=== PATIENT | male | born 1965 | race Caucasian/White ===

== ENCOUNTER 2022-09-16 20:20 | Inpatient (IN) | payer SELFPAY ==
[~2022-09-16 20:20] MED LIST: Iopamidol 300 61% 100 ML VIAL FS ONE
[2022-09-16 21:24] LABS: Actual Bicarbonate (HCO3a) 21.8 mEq/L (22-28); Base Excess (BEa) -0.9 mEq/L (-2.0 to +3.0); CO2 Tension 31.5 mmHg (35.0-45.0); Calcium, Ionized (arterial) 1.15 mmol/L (1.12-1.30); Carboxyhemoglobin (COHb) 0.6 gm% (0.0-3.0); Critical Notified By: CP.JL; Hemoglobin (Hb) 16.1 g/dL (14.0-18.0); O2 Tension (PaO2), arterial 67.8 mmHg (80.0-100.0); Puncture Site LRA; RapidComm Collect By CP.JL; pH, Arterial 7.46 (7.35-7.45)
[2022-09-16 21:27] LABS: ALV-art Gradient 92.465 mmHg (0-20)
[2022-09-16 21:30] LABS: #Basophils 0.1 10x3/uL (0.0-0.2); #Eosinphils 0.1 10x3/uL (0.0-0.5); #Neutrophils 4.1 10x3/uL (1.5-8.4); %Basophils 0.8 % (0.0-2.0); %Lymphocytes 20.3 % (18.0-47.0); %Monocytes 14.4 % (0.0-10.0); %Neutrophils 61.9 % (40.0-75.0); Hemoglobin 15.5 g/dL (13.5-17.5); Mean Corpuscular HGB CONC 34.1 g/dL (32.0-36.0); Mean Corpuscular Hemoglobin 30.6 pg (27.0-33.0); Mean Corpuscular Volume 89.7 fl (81.2-95.1); Mean Platelet Volume 9.3 fl (7.4-10.4); Platelet Count 272 10x3/uL (150-450); RBC Distribution Width 13.8 % (11.5-14.5); Red Blood Cell (RBC) Count 5.06 10x6/uL (4.32-5.72); White Blood Cell (WBC) Count 6.6 10x3/uL (3.5-10.5)
[2022-09-16] MEDS ORDERED: Furosemide 40 MG/4 ML VIAL ONE (21:34)
[2022-09-16 21:39] LABS: Prothrombin Time 10.4 sec (9.5-12.1)
[2022-09-16 21:44] LABS: ALT (SGPT) 32 U/L (8-55); AST (SGOT) 35 U/L (5-34); Albumin 4.1 g/dL (3.5-5.0); Alkaline Phosphatase 69 U/L (40-110); Anion Gap 14 mmol/L (10-20); BUN (Urea Nitrogen) 25 mg/dL (8.4-25.7); Bilirubin, Total 0.5 mg/dL (0.2-1.2); Calc. Creatinine Clearance 0 mL/min (70-130); Carbon Dioxide 23 mmol/L (22-29); Chloride 107 mmol/L (98-107); Estimated GFR 53; Globulin 2.7 g/dL (2.4-3.5); Glucose 91 mg/dL (70-105); Lipase 29 U/L (8-78); Potassium 4.1 mmol/L (3.5-5.1); Protein, Total 6.8 g/dL (6.0-8.3); Sodium 140 mmol/L (136-145)
[2022-09-16 22:05] LABS: CKMB 7.8 ng/mL (0-6.6)
[2022-09-16] MEDS ORDERED: Calcium Carbonate 500 MG ChewTAB PO PRN (23:55)
[2022-09-16] MEDS ORDERED: Senokot S 8.6-50 MG TAB PO PRN (23:55)
[2022-09-16] MEDS ORDERED: Guaifenesin DM 100-10/5 ML UDCUP PO PRN (23:55)
[2022-09-16] MEDS ORDERED: Acetaminophen 325 MG TAB PO PRN (23:55)
[2022-09-16] MEDS ORDERED: Ondansetron PF 4 MG/2 ML Vial IVP PRN (23:55)
[2022-09-17] MEDS ORDERED: hydrALAZINE 20 MG/ML VIAL SLOW IVP PRN (00:02)
[2022-09-17] MEDS ORDERED: Carvedilol 3.125 MG TAB PO SCH (00:45)
[2022-09-17] MEDS ORDERED: Cefdinir 300 MG CAP PO SCH (00:45)
[2022-09-17] MEDS ORDERED: Dexamethasone 20 MG/5 ML VIAL SLOW IVP SCH (00:45)
[2022-09-17] MEDS ORDERED: Nitroglycerin 2% Ointment 1 INCH/1 GM Packet TOP SCH (00:45)
[2022-09-17 01:06] VITALS: BMI 27.3
[2022-09-17] MEDS: Lorazepam 2 MG/ML VIAL SLOW IVP PRN ×2 (01:19→16:00)
[2022-09-17 02:22] LABS: SARS-CoV-2 NAA Rapid Test Not Detected (NotDetected)
[2022-09-17 05:02] LABS: ALT (SGPT) 33 U/L (8-55); AST (SGOT) 32 U/L (5-34); Albumin 4.3 g/dL (3.5-5.0); Alkaline Phosphatase 71 U/L (40-110); Anion Gap 12 mmol/L (10-20); BUN (Urea Nitrogen) 24 mg/dL (8.4-25.7); Bilirubin, Total 0.6 mg/dL (0.2-1.2); Calc. Creatinine Clearance 73 mL/min (70-130); Calcium 9.1 mg/dL (7.8-10.44); Carbon Dioxide 21 mmol/L (22-29); Chloride 106 mmol/L (98-107); Estimated GFR 66; Globulin 3.3 g/dL (2.4-3.5); Glucose 123 mg/dL (70-105); Potassium 3.9 mmol/L (3.5-5.1); Protein, Total 7.6 g/dL (6.0-8.3); Sodium 135 mmol/L (136-145)
[2022-09-17 05:03] LABS: #Monocytes 0.3 10x3/uL (0.0-1.1); #Neutrophils 4.3 10x3/uL (1.5-8.4); %Basophils 0.6 % (0.0-2.0); %Eosinophils 0.4 % (0.0-6.0); %Lymphocytes 13.8 % (18.0-47.0); %Neutrophils 79.5 % (40.0-75.0); Hemoglobin 16.2 g/dL (13.5-17.5); Mean Corpuscular HGB CONC 33.8 g/dL (32.0-36.0); Mean Corpuscular Hemoglobin 30.3 pg (27.0-33.0); Mean Corpuscular Volume 89.7 fl (81.2-95.1); Mean Platelet Volume 9.4 fl (7.4-10.4); Platelet Count 273 10x3/uL (150-450); RBC Distribution Width 14.2 % (11.5-14.5); Red Blood Cell (RBC) Count 5.35 10x6/uL (4.32-5.72); White Blood Cell (WBC) Count 5.4 10x3/uL (3.5-10.5)
[2022-09-17 05:24] LABS: CKMB 7.2 ng/mL (0-6.6)
[2022-09-17] MEDS: Furosemide 40 MG/4 ML VIAL SLOW IVP SCH ×2 (05:30→14:11)
[2022-09-17 06:38] LABS: Magnesium 2.6 mg/dL (1.6-2.6)
[2022-09-17] MEDS: Budesonide 0.5 MG/2 ML NEB NEB SCH ×2 (07:40→18:37)
[2022-09-17] MEDS ORDERED: Carvedilol 12.5 MG TAB PO SCH (08:00)
[2022-09-17] MEDS ORDERED: Losartan 25 MG TAB PO SCH (09:00)
[2022-09-17] MEDS ORDERED: Iopamidol 300 61% 100 ML VIAL FS ONE (09:08)
[2022-09-17 09:32] LABS: CKMB 7.5 ng/mL (0-6.6)
[2022-09-17] MEDS: Enoxaparin Sodium 40 MG/0.4 ML SYRINGE SC SCH (10:28)
[2022-09-17] MEDS: Folic Acid 1 MG TAB PO SCH (10:29)
[2022-09-17] MEDS: Aspirin 81 mg Enteric Coated Tablet PO SCH (10:29)
[2022-09-17] MEDS: Multivitamin W/ Minerals 1 TAB PO SCH (10:29)
[2022-09-17] MEDS: Thiamine 100 MG TAB PO SCH (10:29)
[2022-09-17] MEDS ORDERED: Carvedilol 6.25 MG TAB PO SCH (10:30)
[2022-09-17] MEDS ORDERED: Losartan Potassium 50 MG TAB PO SCH (10:30)
[2022-09-17] MEDS: Cefdinir 300 MG CAP PO SCH ×2 (10:36→20:49)
[2022-09-17 10:37] LABS: Cardiac Risk 3.4 (Less than 4.5)
[2022-09-17 14:19] LABS: Hemoglobin A1c 5.5 % (4.0-6.0)
[2022-09-17] MEDS: Carvedilol 6.25 MG TAB PO SCH (16:03)
[2022-09-18] MEDS: Furosemide 40 MG/4 ML VIAL SLOW IVP SCH ×2 (06:22→13:43)
[2022-09-18 07:44] LABS: #Monocytes 0.8 10x3/uL (0.0-1.1); #Neutrophils 7.7 10x3/uL (1.5-8.4); %Basophils 0.3 % (0.0-2.0); %Eosinophils 0.3 % (0.0-6.0); %Lymphocytes 20.9 % (18.0-47.0); %Monocytes 7.5 % (0.0-10.0); %Neutrophils 70.5 % (40.0-75.0); Hemoglobin 17.6 g/dL (13.5-17.5); Mean Corpuscular HGB CONC 33.4 g/dL (32.0-36.0); Mean Corpuscular Hemoglobin 30.2 pg (27.0-33.0); Mean Corpuscular Volume 90.4 fl (81.2-95.1); Mean Platelet Volume 9.6 fl (7.4-10.4); Platelet Count 366 10x3/uL (150-450); RBC Distribution Width 14.3 % (11.5-14.5); Red Blood Cell (RBC) Count 5.83 10x6/uL (4.32-5.72); White Blood Cell (WBC) Count 10.9 10x3/uL (3.5-10.5)
[2022-09-18 07:56] LABS: Anion Gap 14 mmol/L (10-20); BUN (Urea Nitrogen) 39 mg/dL (8.4-25.7); Calc. Creatinine Clearance 57 mL/min (70-130); Calcium 9.5 mg/dL (7.8-10.44); Carbon Dioxide 25 mmol/L (22-29); Chloride 103 mmol/L (98-107); Estimated GFR 51; Glucose 117 mg/dL (70-105); Potassium 3.2 mmol/L (3.5-5.1); Sodium 139 mmol/L (136-145)
[2022-09-18] MEDS: Budesonide 0.5 MG/2 ML NEB NEB SCH ×2 (08:00→18:30)
[2022-09-18] MEDS ORDERED: Potassium Chloride 20 MEQ TAB PO SCH (09:15)
[2022-09-18] MEDS: Aspirin 81 mg Enteric Coated Tablet PO SCH (09:22)
[2022-09-18] MEDS: Enoxaparin Sodium 40 MG/0.4 ML SYRINGE SC SCH (09:22)
[2022-09-18] MEDS: Cefdinir 300 MG CAP PO SCH (09:23)
[2022-09-18] MEDS: Carvedilol 6.25 MG TAB PO SCH ×2 (09:23→16:39)
[2022-09-18] MEDS: Thiamine 100 MG TAB PO SCH (09:24)
[2022-09-18] MEDS: Folic Acid 1 MG TAB PO SCH (09:24)
[2022-09-18] MEDS: Multivitamin W/ Minerals 1 TAB PO SCH (09:24)
[2022-09-18] MEDS: Losartan Potassium 50 MG TAB PO SCH (09:25)
[2022-09-18] MEDS: Lorazepam 2 MG/ML VIAL SLOW IVP PRN (11:18)
[2022-09-19] MEDS: Lorazepam 2 MG/ML VIAL SLOW IVP PRN ×2 (02:41→10:11)
[2022-09-19 05:45] LABS: Anion Gap 14 mmol/L (10-20); BUN (Urea Nitrogen) 35 mg/dL (8.4-25.7); Calc. Creatinine Clearance 67 mL/min (70-130); Carbon Dioxide 24 mmol/L (22-29); Chloride 104 mmol/L (98-107); Estimated GFR 62; Glucose 90 mg/dL (70-105); Potassium 4.1 mmol/L (3.5-5.1); Sodium 138 mmol/L (136-145)
[2022-09-19] MEDS: Furosemide 40 MG/4 ML VIAL SLOW IVP SCH (06:26)
[2022-09-19] MEDS: Budesonide 0.5 MG/2 ML NEB NEB SCH (08:21)
[2022-09-19] MEDS: Thiamine 100 MG TAB PO SCH (10:05)
[2022-09-19] MEDS: Carvedilol 6.25 MG TAB PO SCH (10:05)
[2022-09-19] MEDS: Multivitamin W/ Minerals 1 TAB PO SCH (10:05)
[2022-09-19] MEDS: Folic Acid 1 MG TAB PO SCH (10:05)
[2022-09-19] MEDS: Aspirin 81 mg Enteric Coated Tablet PO SCH (10:05)
[2022-09-19] MEDS: Losartan Potassium 50 MG TAB PO SCH (10:05)
[2022-09-19] MEDS: Enoxaparin Sodium 40 MG/0.4 ML SYRINGE SC SCH (10:06)
[2022-09-19 11:28] VITALS: BP 143/92; TEMP 97.8
[2022-09-19] MEDS ORDERED: Nicotine 21 MG PATCH TD SCH (21:00)
== END 2022-09-19 12:40 | disposition left against medical advice (07) | DRG 291 ==
LOC: CSHERS 20:20 → CSHTELE 23:20 → UNDOADMIN 09-17 00:30
PROVIDERS: ADMIT Student in an Organized Health Care Education/Training Program; ATTEND Internal Medicine
DX: I13.0 Hypertensive heart and chronic kidney disease with heart failure and stage 1 through stage 4 chronic kidney disease, or unspecified chronic kidney disease (principal); I50.43 Acute on chronic combined systolic (congestive) and diastolic (congestive) heart failure; Z20.822 Contact with and (suspected) exposure to COVID-19; J43.9 Emphysema, unspecified; F17.210 Nicotine dependence, cigarettes, uncomplicated; F10.10 Alcohol abuse, uncomplicated; R79.89 Other specified abnormal findings of blood chemistry; J20.9 Acute bronchitis, unspecified; J37.0 Chronic laryngitis; J02.9 Acute pharyngitis, unspecified; N18.9 Chronic kidney disease, unspecified; Z71.6 Tobacco abuse counseling; Z71.41 Alcohol abuse counseling and surveillance of alcoholic; Z82.49 Family history of ischemic heart disease and other diseases of the circulatory system
CPT/HCPCS: 36415; 36600; 70491; 71045; 71260; 74177; 80048; 80053; 80061; 82553; 82805; 83036; 83690; 83735; 83880; 84443; 84484; 85025; 85610; 87804; 93005; 93010; 93306; 94760; 96374; J0360; J1100; J1650; J1940; J2060; J7620; J7626; Q9967

== ENCOUNTER 2022-12-03 16:22 | Inpatient (IN) | payer SELFPAY ==
[2022-12-03 17:08] LABS: #Basophils 0.1 10x3/uL (0.0-0.2); #Eosinphils 0.2 10x3/uL (0.0-0.5); #Monocytes 1.1 10x3/uL (0.0-1.1); #Neutrophils 6.5 10x3/uL (1.5-8.4); %Basophils 0.6 % (0.0-2.0); %Eosinophils 1.7 % (0.0-6.0); %Lymphocytes 24.5 % (18.0-47.0); %Monocytes 10.8 % (0.0-10.0); %Neutrophils 61.7 % (40.0-75.0); Hemoglobin 17.2 g/dL (13.5-17.5); Mean Corpuscular HGB CONC 34.2 g/dL (32.0-36.0); Mean Corpuscular Hemoglobin 29.7 pg (27.0-33.0); Mean Corpuscular Volume 86.7 fl (81.2-95.1); Mean Platelet Volume 9.7 fl (7.4-10.4); Platelet Count 295 10x3/uL (150-450); RBC Distribution Width 13.2 % (11.5-14.5); White Blood Cell (WBC) Count 10.5 10x3/uL (3.5-10.5)
[2022-12-03 17:17] LABS: ALT (SGPT) 26 U/L (8-55); AST (SGOT) 21 U/L (5-34); Albumin 4.1 g/dL (3.5-5.0); Alkaline Phosphatase 63 U/L (40-110); Anion Gap 15 mmol/L (10-20); BUN (Urea Nitrogen) 19 mg/dL (8.4-25.7); Bilirubin, Total 0.7 mg/dL (0.2-1.2); Calc. Creatinine Clearance 0 mL/min (70-130); Calcium 9.3 mg/dL (7.8-10.44); Carbon Dioxide 23 mmol/L (22-29); Chloride 105 mmol/L (98-107); Estimated GFR 77; Globulin 3.3 g/dL (2.4-3.5); Glucose 96 mg/dL (70-105); Potassium 3.6 mmol/L (3.5-5.1); Protein, Total 7.4 g/dL (6.0-8.3); Sodium 139 mmol/L (136-145)
[2022-12-03 17:42] LABS: CKMB 5.4 ng/mL (0-6.6)
[2022-12-03 17:45] LABS: Bilirubin Neg (Negative); Blood, Urine Negative (Negative); Clarity Clear (Clear); Glucose, Urine (Dipstick) Normal (Negative); Ketone, Urine Negative (Negative); Leukocyte Negative (Negative); Nitrite Negative (Negative); Protein, Urine (Dipstick) 15 mg/dl (Neg-Trace); Urobilinogen Normal mg/dL (Less than 2)
[2022-12-03] MEDS ORDERED: Aspirin Chewable 81 MG TAB ONE (18:01)
[2022-12-03] MEDS ORDERED: Furosemide 40 MG/4 ML VIAL ONE (18:57)
[2022-12-03 19:06] LABS: SARS-CoV-2 NAA Rapid Test Not Detected (NotDetected)
[2022-12-03 20:24] LABS: Troponin I 0.072 ng/mL (< 0.028)
[2022-12-03] MEDS ORDERED: Aspirin 325 MG TAB PO SCH (21:00)
[2022-12-03 21:26] LABS: Magnesium 2.2 mg/dL (1.6-2.6)
[2022-12-03 22:34] VITALS: BMI 27.1
[2022-12-03 23:18] LABS: Troponin I 0.081 ng/mL (< 0.028)
[2022-12-03] MEDS ORDERED: Carvedilol 3.125 MG TAB PO SCH (23:30)
[2022-12-03] MEDS ORDERED: Lisinopril 10 MG TAB PO SCH (23:30)
[2022-12-04] MEDS: cefTRIAXone\\ROCEPHIN 1 GM in Sodium Chloride 0.9% 100 ML IVPB SCH ×2 (00:41→23:54)
[2022-12-04] MEDS: Nicotine 21 MG PATCH TD SCH (00:46)
[2022-12-04] MEDS: Nitroglycerin 2% Ointment 1 INCH/1 GM Packet TOP SCH ×3 (00:48→16:37)
[2022-12-04] MEDS: Azithromycin 500 MG in Sodium Chloride 0.9% 250 ML 250 ML IVPB SCH (00:53)
[2022-12-04] MEDS ORDERED: FLU VACC QS2022-23(6MOS UP)/PF 60 MCG/0.5 ML SYRINGE IM ONE (04:00)
[2022-12-04 04:31] LABS: #Basophils 0.1 10x3/uL (0.0-0.2); #Eosinphils 0.2 10x3/uL (0.0-0.5); #Monocytes 0.9 10x3/uL (0.0-1.1); #Neutrophils 6.3 10x3/uL (1.5-8.4); %Basophils 0.8 % (0.0-2.0); %Eosinophils 1.7 % (0.0-6.0); %Lymphocytes 18.8 % (18.0-47.0); %Monocytes 9.9 % (0.0-10.0); Hemoglobin 15.6 g/dL (13.5-17.5); Mean Corpuscular HGB CONC 34.2 g/dL (32.0-36.0); Mean Corpuscular Hemoglobin 29.4 pg (27.0-33.0); Mean Platelet Volume 9.6 fl (7.4-10.4); Platelet Count 279 10x3/uL (150-450); RBC Distribution Width 13.3 % (11.5-14.5); White Blood Cell (WBC) Count 9.3 10x3/uL (3.5-10.5)
[2022-12-04 04:46] LABS: Anion Gap 12 mmol/L (10-20); BUN (Urea Nitrogen) 25 mg/dL (8.4-25.7); Calc. Creatinine Clearance 66 mL/min (70-130); Calcium 8.7 mg/dL (7.8-10.44); Carbon Dioxide 23 mmol/L (22-29); Chloride 106 mmol/L (98-107); Estimated GFR 59; Glucose 100 mg/dL (70-105); Potassium 3.8 mmol/L (3.5-5.1); Sodium 137 mmol/L (136-145)
[2022-12-04 05:01] LABS: Uric Acid 8.5 mg/dL (3.5-7.2)
[2022-12-04] MEDS ORDERED: Melatonin 3 MG TAB PO SCH (05:15)
[2022-12-04] MEDS: Furosemide 40 MG/4 ML VIAL SLOW IVP SCH ×2 (05:20→16:37)
[2022-12-04] MEDS: Ipratropium/Albuterol 3 ML NEB NEB SCH ×4 (07:05→19:46)
[2022-12-04] MEDS: Carvedilol 3.125 MG TAB PO SCH ×2 (09:45→16:37)
[2022-12-04] MEDS: Aspirin 81 mg Enteric Coated Tablet PO SCH (09:45)
[2022-12-04] MEDS: Lisinopril 10 MG TAB PO SCH (09:45)
[2022-12-04] MEDS ORDERED: Lorazepam 2 MG/ML VIAL IM PRN (10:14)
[2022-12-04] MEDS ORDERED: Lorazepam 1 MG TAB PO PRN (10:14)
[2022-12-04] MEDS ORDERED: Electrolyte Replacement Protocol 1 EACH FS SCH (10:15)
[2022-12-04] MEDS: Folic Acid 1 MG TAB PO SCH (11:02)
[2022-12-04] MEDS ORDERED: Multivit, Therapeutic 1 TAB PO SCH (11:30)
[2022-12-04] MEDS ORDERED: Folic Acid 1 MG TAB PO SCH (11:30)
[2022-12-04] MEDS ORDERED: Benzonatate 100 MG CAP PO PRN (18:40)
[2022-12-05] MEDS: Nitroglycerin 2% Ointment 1 INCH/1 GM Packet TOP SCH ×3 (00:31→16:39)
[2022-12-05] MEDS: Nicotine 21 MG PATCH TD SCH (00:31)
[2022-12-05] MEDS: Azithromycin 500 MG in Sodium Chloride 0.9% 250 ML 250 ML IVPB SCH (00:55)
[2022-12-05] MEDS: Ipratropium/Albuterol 3 ML NEB NEB SCH ×4 (01:32→19:50)
[2022-12-05] MEDS ORDERED: diphenhydrAMINE 50 MG/ML VIAL IVP SCH (02:30)
[2022-12-05 05:29] LABS: #Basophils 0.1 10x3/uL (0.0-0.2); #Eosinphils 0.2 10x3/uL (0.0-0.5); #Monocytes 0.9 10x3/uL (0.0-1.1); #Neutrophils 5.7 10x3/uL (1.5-8.4); %Basophils 0.8 % (0.0-2.0); %Eosinophils 2.7 % (0.0-6.0); %Lymphocytes 21.9 % (18.0-47.0); %Monocytes 9.6 % (0.0-10.0); %Neutrophils 64.4 % (40.0-75.0); Hemoglobin 15.8 g/dL (13.5-17.5); Mean Corpuscular HGB CONC 33.6 g/dL (32.0-36.0); Mean Corpuscular Hemoglobin 28.9 pg (27.0-33.0); Mean Corpuscular Volume 85.9 fl (81.2-95.1); Mean Platelet Volume 9.6 fl (7.4-10.4); Platelet Count 293 10x3/uL (150-450); RBC Distribution Width 13.3 % (11.5-14.5); Red Blood Cell (RBC) Count 5.47 10x6/uL (4.32-5.72); White Blood Cell (WBC) Count 8.8 10x3/uL (3.5-10.5)
[2022-12-05 05:44] LABS: Anion Gap 12 mmol/L (10-20); BUN (Urea Nitrogen) 24 mg/dL (8.4-25.7); Calc. Creatinine Clearance 71 mL/min (70-130); Calcium 8.6 mg/dL (7.8-10.44); Carbon Dioxide 23 mmol/L (22-29); Chloride 103 mmol/L (98-107); Estimated GFR 64; Glucose 92 mg/dL (70-105); Potassium 3.6 mmol/L (3.5-5.1); Sodium 134 mmol/L (136-145)
[2022-12-05] MEDS: Furosemide 40 MG/4 ML VIAL SLOW IVP SCH ×2 (06:14→16:39)
[2022-12-05] MEDS ORDERED: Potassium Chloride 20 MEQ TAB PO SCH (10:00)
[2022-12-05] MEDS: Multivit, Therapeutic 1 TAB PO SCH (11:02)
[2022-12-05] MEDS: Carvedilol 3.125 MG TAB PO SCH ×2 (11:02→16:39)
[2022-12-05] MEDS: Aspirin 81 mg Enteric Coated Tablet PO SCH (11:03)
[2022-12-05] MEDS: Folic Acid 1 MG TAB PO SCH (11:03)
[2022-12-05] MEDS: Lisinopril 10 MG TAB PO SCH (11:03)
[2022-12-06] MEDS: Nicotine 21 MG PATCH TD SCH (00:38)
[2022-12-06] MEDS: Nitroglycerin 2% Ointment 1 INCH/1 GM Packet TOP SCH ×2 (00:39→12:04)
[2022-12-06] MEDS: Ipratropium/Albuterol 3 ML NEB NEB SCH ×4 (03:20→19:57)
[2022-12-06 06:01] LABS: #Basophils 0.1 10x3/uL (0.0-0.2); #Eosinphils 0.3 10x3/uL (0.0-0.5); #Monocytes 1.1 10x3/uL (0.0-1.1); #Neutrophils 6.9 10x3/uL (1.5-8.4); %Basophils 0.6 % (0.0-2.0); %Eosinophils 2.6 % (0.0-6.0); %Lymphocytes 17.6 % (18.0-47.0); %Monocytes 10.6 % (0.0-10.0); Hemoglobin 16.6 g/dL (13.5-17.5); Mean Corpuscular HGB CONC 33.7 g/dL (32.0-36.0); Mean Corpuscular Hemoglobin 29.4 pg (27.0-33.0); Mean Corpuscular Volume 87.4 fl (81.2-95.1); Mean Platelet Volume 9.3 fl (7.4-10.4); Platelet Count 301 10x3/uL (150-450); RBC Distribution Width 13.3 % (11.5-14.5); Red Blood Cell (RBC) Count 5.64 10x6/uL (4.32-5.72); White Blood Cell (WBC) Count 10.1 10x3/uL (3.5-10.5)
[2022-12-06] MEDS: Furosemide 40 MG/4 ML VIAL SLOW IVP SCH (06:04)
[2022-12-06 06:22] LABS: Anion Gap 13 mmol/L (10-20); BUN (Urea Nitrogen) 27 mg/dL (8.4-25.7); Calc. Creatinine Clearance 69 mL/min (70-130); Calcium 9.3 mg/dL (7.8-10.44); Carbon Dioxide 24 mmol/L (22-29); Chloride 105 mmol/L (98-107); Estimated GFR 62; Glucose 101 mg/dL (70-105); Potassium 4.1 mmol/L (3.5-5.1); Sodium 138 mmol/L (136-145)
[2022-12-06] MEDS: Lisinopril 10 MG TAB PO SCH ×2 (06:39→06:40)
[2022-12-06] MEDS: Aspirin 81 mg Enteric Coated Tablet PO SCH (06:39)
[2022-12-06] MEDS: Carvedilol 3.125 MG TAB PO SCH (06:39)
[2022-12-06] MEDS: Folic Acid 1 MG TAB PO SCH (09:17)
[2022-12-06] MEDS: Multivit, Therapeutic 1 TAB PO SCH (09:18)
[2022-12-06] MEDS ORDERED: Iopamidol 300 61% 100 ML VIAL FS ONE (10:15)
[2022-12-06] MEDS ORDERED: Nitroglycerin 50 MG/250 ML BOT 0 ML ONE (10:57)
[2022-12-06] MEDS ORDERED: Heparin 10,000 UNITS/ 10 ML VIAL ONE (10:58)
[2022-12-06] MEDS ORDERED: Adenosine 6 MG/2 ML VIAL ONE (10:58)
[2022-12-06] MEDS ORDERED: Sodium Chloride 0.9% 1,000 ML ONE (11:00)
[2022-12-06] MEDS ORDERED: Fentanyl 100 MCG/2 ML VIAL ONE (11:54)
[2022-12-06] MEDS ORDERED: Midazolam HCl 5 mg/5 ml Vial ONE (11:55)
[2022-12-06] MEDS ORDERED: Acetaminophen/Codeine 30-300mg Tablet PO PRN ×2 (12:43)
[2022-12-06] MEDS ORDERED: Sodium Chloride 0.9% 200 ML IV PRN (12:43)
[2022-12-06] MEDS ORDERED: Sodium Chloride 0.9% 1,000 ML IV SCH (12:45)
[2022-12-06 20:54] VITALS: BP 157/77; TEMP 98.4
[2022-12-06] MEDS ORDERED: Atorvastatin Calcium 40 MG TAB PO SCH (21:00)
[2022-12-07] MEDS ORDERED: Lorazepam 0.5 MG TAB PO PRN (10:14)
[2022-12-07] MEDS ORDERED: Thiamine 100 MG TAB PO SCH (11:30)
== END 2022-12-06 17:23 | disposition home or self-care (01) | DRG 286 ==
LOC: CSHERS 16:22 → CSHTELE 22:31 → OBSVTOIN 12-04 16:41
PROVIDERS: ADMIT Family Medicine; ATTEND Internal Medicine
PROC: 4A023N7 Measurement of Cardiac Sampling and Pressure, Left Heart, Percutaneous Approach (ICD-10-PCS; principal; 2022-12-06)
PROC: B2111ZZ Fluoroscopy of Multiple Coronary Arteries using Low Osmolar Contrast (ICD-10-PCS; 2022-12-06)
PROC: B2151ZZ Fluoroscopy of Left Heart using Low Osmolar Contrast (ICD-10-PCS; 2022-12-06)
DX: I11.0 Hypertensive heart disease with heart failure (principal); I50.43 Acute on chronic combined systolic (congestive) and diastolic (congestive) heart failure; J96.01 Acute respiratory failure with hypoxia; J44.1 Chronic obstructive pulmonary disease with (acute) exacerbation; N17.9 Acute kidney failure, unspecified; F17.210 Nicotine dependence, cigarettes, uncomplicated; Z20.822 Contact with and (suspected) exposure to COVID-19; F10.10 Alcohol abuse, uncomplicated; I35.0 Nonrheumatic aortic (valve) stenosis; I25.10 Atherosclerotic heart disease of native coronary artery without angina pectoris; Z98.890 Other specified postprocedural states; Z91.199 Patient's noncompliance with other medical treatment and regimen due to unspecified reason
CPT/HCPCS: 36415; 36416; 71045; 80048; 80053; 81003; 82553; 83735; 83880; 84443; 84484; 84550; 85025; 87070; 87205; 93005; 93010; 93458; 94640; 94760; 96372; 96374; 96375; 96376; 97139; 99152; 99153; C1760; C1769; G0378; J0153; J0456; J0696; J1200; J1644; J1650; J1940; J2250; J3010; J3490; J7050; J7620; U0002